=== PATIENT | female | born 1960 | race Caucasian/White ===

== ENCOUNTER 2017-02-16 20:22 | Emergency (ER) | payer MEDICARE, OTHER | END 2017-02-16 22:42 | disposition home or self-care (01) | LOC: ER 20:22 | DX: K57.32 Diverticulitis of large intestine without perforation or abscess without bleeding (principal); N28.1 Cyst of kidney, acquired; R10.30 Lower abdominal pain, unspecified; W17.81XA Fall down embankment (hill), initial encounter; Y92.007 Garden or yard of unspecified non-institutional (private) residence as the place of occurrence of the external cause; Z98.890 Other specified postprocedural states; Z79.899 Other long term (current) drug therapy; Z88.0 Allergy status to penicillin; Z88.5 Allergy status to narcotic agent | CPT/HCPCS: 99283; 99283-25 ==